=== PATIENT | male | born 1955 | race Caucasian/White ===

== ENCOUNTER 2016-05-05 08:04 | Emergency (ER) | payer OTHER ==
--- NOTE | 2016-05-05 08:39 | EDPHY ---
H & P Stated Complaint: cp Time Seen by Provider: 05/05/16 08:23 HPI/ROS: CHIEF COMPLAINT: Chest pain HISTORY OF PRESENT ILLNESS: Patient is a 60-year-old man who comes to the emergency department complaining of epigastric and left upper quadrant pain. It developed last night after eating [place] food. He was up all night taking Tums and antacids without relief. He has a history of coronary artery disease with 5 stents placed [address] Parry. He also had a negative stress test done 2 months ago prior to surgery. He has a history of spina bifida and self catheterization. He is covered to have bladder and prostate cancer several weeks ago and is status post resection of bladder and prostate 3 weeks ago. He currently has a urostomy bag. Over the last 3 days he has had a slightly elevated temperature temperature of around 99.7degrees. He denies shortness of breath. He does have mild abdominal pain and distension but states that it is gradually improved each day since surgery. He was constipated for some time but is currently having normal bowel movements. REVIEW OF SYSTEMS: Constitutional: denies: chills, fever, recent illness, recent injury EENTM: denies: blurred vision, double vision, nose congestion Respiratory: denies: cough, shortness of breath Cardiac: See HPI Gastrointestinal/Abdominal: See HPI Genitourinary: denies: dysuria, frequency, hematuria, pain Musculoskeletal: denies: joint pain, muscle pain Skin: denies: lesions, rash, jaundice, bruising Neurological: denies: headache, numbness, paresthesia, tingling, dizziness, weakness Hematologic/Lymphatic: denies: blood clots, easy bleeding, easy bruising Immunologic/allergic: denies: HIV/AIDS, transplant EXAM: GENERAL: Well-appearing, well-nourished and in no acute distress. HEAD: Atraumatic, normocephalic. EYES: Pupils equal round and reactive to light, extraocular movements intact, sclera anicteric, conjunctiva are normal. ENT: TMs normal, nares patent, oropharynx clear without exudates. Moist mucous membranes. NECK: Normal range of motion, supple without lymphadenopathy or JVD. LUNGS: Breath sounds clear to auscultation bilaterally and equal. No wheezes rales or rhonchi. HEART: Regular rate and rhythm without murmurs, rubs or gallops. ABDOMEN: Distended, mild diffuse tenderness, wounds clean dry and intact, ostomy clear urine. normoactive bowel sounds. No guarding, no rebound. No masses appreciated. BACK: No CVA tenderness, no spinal tenderness, step-offs or deformities EXTREMITIES: Normal range of motion, no pitting or edema. No clubbing or cyanosis. NEUROLOGICAL: Cranial nerves II through XII grossly intact. Normal speech, normal gait. 5/5 strength, normal movement in all extremities, normal sensation PSYCH: Normal mood, normal affect. SKIN: Warm, dry, normal turgor, no visible rashes or lesions. Source: Patient Exam Limitations: No limitations - Personal History Current Tetanus/Diphtheria Vaccine: Yes - Medical/Surgical History Hx Asthma: No Hx Chronic Respiratory Disease: No Hx Diabetes: No Hx Cardiac Disease: Yes Hx Renal Disease: No Hx Cirrhosis: No Hx Alcoholism: No Hx HIV/AIDS: No Hx Splenectomy or Spleen Trauma: No Other PMH: HTN,sleep apnea, herniated sphincter for the bladder, self caths, enemas for defication, stents x5,urostomy - Family History Significant Family History: Hypertension - Social History Smoking Status: Never smoked Alcohol Use: None Drug Use: None Constitutional: Initial Vital Signs Temperature (C) 36.5 C 05/05/16 08:06 Heart Rate 73 05/05/16 08:06 Respiratory Rate 18 05/05/16 08:06 Blood Pressure 162/77 H 05/05/16 08:06 O2 Sat (%) 97 05/05/16 08:06 O2 Delivery Mode Room Air Allergies/Adverse Reactions: No Known Allergies Allergy (Verified 05/05/16 08:05) Home Medications: Medication Instructions Recorded Aspirin [Aspirin 325 mg (OTC)] 325 mg PO DAILY 01/18/14 Atorvastatin Calcium [Lipitor 80 80 mg PO DAILY 01/18/14 mg] Ezetimibe [Zetia 10 MG (RX)] 10 mg PO DAILY 01/18/14 Hydrochlorothiazide [HCTZ (RX)] 12.5 mg PO Q2D 01/18/14 Lisinopril [Zestril 40 mg (RX)] 40 mg PO DAILY 01/18/14 [place] 3 Fish Oil Softgel 1,000 mg PO DAILY 01/18/14 Pantoprazole Sodium [Protonix 40mg 40 mg PO DAILY 01/18/14 (RX)] oxyCODONE IR [Oxycodone Ir (*)] 5 mg PO Q6 PRN #60 tab 02/02/14 Medical Decision Making - Diagnostics EKG Interpretation: An EKG obtained and was read and documented in trace view. Please see trace view for full reading and report. Sinus bradycardia, similar to previous. Imaging: Results: CT scan of the chest was obtained. The results of the study are positive for left upper lobe/perihilar mass 3 x 3 x 5 cm, no PE or dissection. Fatty liver and gallstones but no source of pain identified. The study was read by Dr. Son. I viewed the images myself on the PACS system. ED Course/Re-evaluation: 11:15 a.m. we discussed the patient's CT results and his lab results. No sign of cardiac injury. The patient states that his symptoms resolved with a large belch at CT scan. He is no longer concern for cardiac issues. He is aware of the mass and his surgeon is currently reviewing films that were done on . We discussed his elevated LFTs when he will also follow up with his surgeon and oncologist about these. They could be due to the recent surgery. He has no right upper quadrant tenderness or pain. Fatty liver seen on CT scan and gallstones without signs of inflammation. I offered admission at this point for further treatment and workup however the patient declines and hands agree to go home and follow up with their oncologist a neurologist. We discussed indications for returning. The patient has stable vital signs currently and is afebrile. His heart rate is slightly bradycardic on arrival but not that unusual for him and has now normalized. Differential Diagnosis: Partial list of the Differential diagnosis considered include but were not limited to; acute coronary disease, GERD, peptic ulcer disease, pneumonia, atelectasis, lung mass and although unlikely based on the history and physical exam, I also considered biliary disease, pancreatitis, liver disease, dissection , PE. I discussed these differential diagnoses and the plan with the patient as well as the usual and expected course. The patient understands that the diagnosis is provisional and that in medicine we are not always correct and that further workup is often warranted. Usual and customary warnings were given. All of the patient's questions were answered. The patient was instructed to return to the emergency department should the symptoms at all worsen or return, otherwise to followup with the physician as we discussed. - Data Points Laboratory Results: Laboratory Results 05/05/16 08:55 05/05/16 08:55 05/05/16 08:55 WBC 10.07 H 10^3/uL (3.80-9.50) RBC 3.73 L 10^6/uL (4.40-6.38) Hgb 9.8 L g/dL (13.7-17.5) Hct 30.0 L % (40.0-51.0) MCV 80.4 L fL (81.5-99.8) MCH 26.3 L pg (27.9-34.1) MCHC 32.7 g/dL (32.4-36.7) RDW 15.7 H % (11.5-15.2) Plt Count 452 H 10^3/uL (150-400) MPV 9.1 fL (8.7-11.7) Neut % (Auto) 83.4 H % (39.3-74.2) Lymph % (Auto) 7.2 L % (15.0-45.0) [place] % (Auto) 7.9 % (4.5-13.0) Eos % (Auto) 0.7 % (0.6-7.6) Baso % (Auto) 0.4 % (0.3-1.7) Nucleat RBC Rel Count 0.0 % (0.0-0.2) Absolute Neuts (auto) 8.39 H 10^3/uL (1.70-6.50) Absolute Lymphs (auto) 0.73 L 10^3/uL (1.00-3.00) Absolute Monos (auto) 0.80 10^3/uL (0.30-0.80) Absolute Eos (auto) 0.07 10^3/uL (0.03-0.40) Absolute Basos (auto) 0.04 10^3/uL (0.02-0.10) Absolute Nucleated RBC 0.00 10^3/uL (0-0.01) Immature Gran % 0.4 % (0.0-1.1) Immature Gran # 0.04 10^3/uL (0.00-0.10) PT 15.0 SEC (12.0-15.0) INR 1.18 H (0.83-1.16) APTT 29.8 SEC (23.0-38.0) Sodium 139 mEq/L (134-144) Potassium 3.6 mEq/L (3.5-5.2) Chloride 103 mEq/L (97-110) Carbon Dioxide 22 mEq/l (22-31) Anion Gap 14 mEq/L (8-16) BUN 10 mg/dL (7-23) Creatinine 0.8 mg/dL (0.7-1.3) Estimated GFR > 60 Glucose 148 H mg/dL (70-100) Calcium 9.2 mg/dL (8.5-10.4) Total Bilirubin 0.6 mg/dL (0.1-1.4) Conjugated Bilirubin 0.3 mg/dL (0.0-0.5) Unconjugated Bilirubin 0.3 mg/dL (0.0-1.1) AST 137 H IU/L (17-59) ALT 199 H IU/L (21-72) Alkaline Phosphatase 154 H IU/L (38-126) Troponin I < 0.012 ng/mL (0-0.034) Total Protein 7.1 g/dL (6.3-8.2) Albumin 3.4 L g/dL (3.5-5.0) Lipase 140.0 IU/L (23-300) Departure - Departure Disposition: Home, Routine, Self-Care Clinical Impression: Chest pain Qualifiers: Chest pain type: other chest pain Qualifier Code: (R07.89) Other chest pain Condition: Fair Instructions: Chest Pain (ED) Referrals: Valorie Lopez MD [Primary Care Provider] - As per Instructions
[2016-05-05] MEDS ORDERED: IOPAMIDOL (ISOVUE 370) 100 ML BTL IV ONE (08:47)
--- NOTE | 2016-05-05 08:51 | CPEKG ---
Heart Rate: 46 RR Interval: 1304 P-R Interval: 156 QRSD Interval: 112 QT Interval: 456 QTC Interval: 399 P [place]: 4 QRS [place]: 40 T Wave [place]: 44 EKG Severity - ABNORMAL ECG - EKG Impression: SINUS BRADYCARDIA EKG Impression: NONSPECIFIC INTRAVENTRICULAR CONDUCTION DELAY EKG Impression: similar to previous Electronically Signed By: Ricky Talbot 05-May-2016 09:37:03
[2016-05-05 09:11] VITALS: TEMP 97.9
[2016-05-05 09:21] LABS: % IMMATURE GRANULYOCYTES 0.4 % (0.0-1.1); ABSOLUTE IMMATURE GRANULOCYTES 0.04 10^3/uL (0.00-0.10); ADD DIFF? NO; ADD MORPH? NO; ADD SCAN? NO; ATYPICAL LYMPHOCYTE FLAG 10 (0-99); FRAGMENT RBC FLAG 20 (0-99); HEMOGLOBIN 9.8 g/dL (13.7-17.5); LEFT SHIFT FLG 0 (0-99); LIPEMIA HEMOLYSIS FLAG 80 (0-99); MEAN CELL HEMOGLOBIN 26.3 pg (27.9-34.1); MEAN CELL HEMOGLOBIN CONCENTR. 32.7 g/dL (32.4-36.7); MEAN CELL VOLUME 80.4 fL (81.5-99.8); MEAN PLATELET VOLUME 9.1 fL (8.7-11.7); PLATELET CLUMPS FLAG 0 (0-99); PLATELET COUNT 452 10^3/uL (150-400); RED BLOOD CELL COUNT 3.73 10^6/uL (4.40-6.38); RED CELL DISTRIBUTION WIDTH 15.7 % (11.5-15.2)
[2016-05-05 09:22] LABS: ALANINE AMINOTRANSFERASE 199 IU/L (21-72); ALBUMIN 3.4 g/dL (3.5-5.0); ALKALINE PHOSPHATASE 154 IU/L (38-126); ANION GAP 14 mEq/L (8-16); ASPARTATE AMINOTRANSFERASE 137 IU/L (17-59); BILIRUBIN,TOTAL 0.6 mg/dL (0.1-1.4); BILIRUBIN-CONJUGATED 0.3 mg/dL (0.0-0.5); BILIRUBIN-UNCONJUGATED 0.3 mg/dL (0.0-1.1); CALCIUM 9.2 mg/dL (8.5-10.4); CARBON DIOXIDE 22 mEq/l (22-31); CHLORIDE 103 mEq/L (97-110); CREATININE 0.8 mg/dL (0.7-1.3); GLOMERULAR FILTRATION RATE > 60; GLUCOSE 148 mg/dL (70-100); POTASSIUM 3.6 mEq/L (3.5-5.2); SODIUM 139 mEq/L (134-144); TOTAL PROTEIN 7.1 g/dL (6.3-8.2)
[2016-05-05 09:26] LABS: APTT 29.8 SEC (23.0-38.0); INR 1.18 (0.83-1.16)
[2016-05-05 09:33] LABS: TROPONIN I < 0.012 ng/mL (0-0.034)
--- NOTE | 2016-05-05 11:01 | CT ---
CT Pulmonary Angiogram History: Shortness of breath, elevated d-dimer. History of prostate and bladder cancer. Comparison: CT chest 10/18/2015. Technique: Axial contrast-enhanced images were obtained through the chest following the uneventful in travenous administration of 95 mL Isovue-370. Creatinine is 0.8. Multiplanar reformations were perfor med through the pulmonary arteries. Dose reduction techniques were utilized. Findings: This is a good quality study with visualization of the vessels to the subsegmental level. T here is no pulmonary embolus. There is a 3.8 x 3.0 x 5.1 cm (series 5 image 86) (transverse by cranio caudal) left perihilar mass in the inferior aspect of the left upper lobe in the region of the major fissure. Relative lucency of lung peripheral to the mass could be related to air trapping. Mild perib ronchial thickening is present. Heart size is normal. Three-vessel coronary artery atherosclerosis is present, most prominent in the LAD and circumflex. The aorta is normal caliber without dissection. N o pathologically enlarged lymph nodes are identified. 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 Diffuse fatty infiltration is present in the liver. Gallstones are present in an otherwise normal gallbladde r. Impression: 1. 5.1 cm left perihilar mass highly suspicious for malignancy. This reportedly has been imaged at an outside facility. If outside images are available, I will be happy to compare them. 2. No visible pulmonary embolus. 3. Coronary artery atherosclerosis. 4. Fatty liver. 5. Cholelithiasis. 6. Additional findings as above. Findings discussed with Ricky Talbot 05/05/2016 at 10:50 a.m.
[2016-05-05 11:43] VITALS: BP 111/76; PULSE 72; RESP 14; O2SAT 96
== END 2016-05-05 11:55 | disposition home or self-care (01) ==
DX: R07.89 Other chest pain (principal); I10 Essential (primary) hypertension; Z95.5 Presence of coronary angioplasty implant and graft; Z79.82 Long term (current) use of aspirin
CPT/HCPCS: Q9967

== ENCOUNTER 2016-05-13 14:41 | Emergency (ER) | payer OTHER ==
[2016-05-13 15:05] VITALS: BP 135/74; PULSE 72; RESP 16; TEMP 98.2; O2SAT 96
--- NOTE | 2016-05-13 15:08 | UCPHY ---
H & P Patient Type: Established Chief Complaint Nursing Narrative: redness and swelling to r ankle x 2 days. no known injury HPI/ROS: HPI CHIEF COMPLAINT: Right foot swelling, redness HISTORY OF PRESENT ILLNESS: This patient very pleasant 60-year-old male, nondiabetic, significant past medical history for recent surgery prostate surgery and bladder removal with urostomy diversion for bladder cancer, also has gout, presents to the urgent care with right lateral foot pain redness and swelling over the 3rd 4th and 5th metatarsal. Denies trauma. Denies fever. Denies to redness streaking up his leg. States he has been taking his gout medicine it has slightly improved in the last 2-3 days. However given the redness and warmth he decided to come to the urgent care to be evaluated. He denies chest pain, shortness of breath, nausea, vomiting, fever or exquisite pain. He is able to ambulate denies significant trauma to his foot. He is requesting an x-ray of his foot. Past Medical History: Gout, recent diagnosis of bladder cancer prostate cancer coronary artery disease with stents Past Surgical History: Stents in his heart, recent bladder surgery urostomy diversion Social History: Denies daily use of drugs alcohol tobacco products Family History: noncontributory ROS REVIEW OF SYSTEMS: A comprehensive 10 point review of systems is otherwise negative aside from elements mentioned in the history of present illness. Exam Constitutional triage nursing summary reviewed, vital signs reviewed, awake/ alert. Eyes normal conjunctivae and sclera, EOMI, PERRLA. HENT normal inspection, atraumatic, moist mucus membranes, no epistaxis, neck supple/ no meningismus, no raccoon eyes. Respiratory clear to auscultation bilaterally, normal breath sounds, no respiratory distress, no wheezing. Cardiovascular rate normal, regular rhythm, no murmur, no edema, distal pulses normal. Gastrointestinal soft, non-tender, no rebound, no guarding, normal bowel sounds, no distension, no pulsatile mass. Genitourinary no CVA tenderness. Musculoskeletal right foot: Tender palpation of the 3rd 4th and 5th metatarsal , he has good neurovascular function good pulse, specifically good DP pulse, warm extremity, there is minimal redness to the right lateral foot it has been outlined, does not streak up his calf or his anterior tibia, there is no crepitus, there is some mild edema, no midline vertebral tenderness, full range of motion, no calf swelling, no tenderness of extremities, no meningismus, good pulses, neurovascularly intact. Skin pink, warm, & dry, no rash, skin atraumatic. Neurologic awake, alert and oriented x 3, AAOx3, moves all 4 extremities equally, motor intact, sensory intact, CN II-XII intact, normal cerebellar, normal vision, normal speech. Psychiatric normal mood/affect. Heme/Lymph/Immune no lymphadenopathy. Differential Diagnosis: Includes but is not limited to in a particular order, cellulitis, doubt underlying foot fracture, gout Medical Decision Making: This patient had an x-ray at his request of the right foot to rule out fracture however this is unlikely given no history of trauma, he has redness and some mild swelling he is neurovascularly intact most likely this is a cellulitis. Does tell me it is improved with gout medicine I encouraged him to continue his gout medicine I will add Keflex and Bactrim to his regimen. He has been outlined he understands watch closely for further worsening symptoms including worsening redness, swelling, pain, fever. He understands he sees is to return to the urgent care/emergency room. ED x-ray right foot: negative for acute fracture. Image interpreted myself. Source: Patient - Medical/Surgical History Hx Asthma: No Hx Chronic Respiratory Disease: No Hx Diabetes: No Hx Cardiac Disease: Yes Hx Renal Disease: No Hx Cirrhosis: No Hx Alcoholism: No Hx HIV/AIDS: No Hx Splenectomy or Spleen Trauma: No Other PMH: 5 cardiac stents, htn, spina bifada, urostomy - Family History Significant Family History: No pertinent family hx - Social History Smoking Status: Never smoked Constitutional: Initial Vital Signs Temperature (C) 36.8 C 05/13/16 15:02 Heart Rate 72 05/13/16 15:02 Respiratory Rate 16 05/13/16 15:02 Blood Pressure 135/74 H 05/13/16 15:02 O2 Sat (%) 96 05/13/16 15:02 O2 Delivery Mode Room Air Allergies/Adverse Reactions: No Known Allergies Allergy (Verified 05/05/16 08:05) Home Medications: Medication Instructions Recorded Aspirin [Aspirin 325 mg (OTC)] 325 mg PO DAILY 01/18/14 Atorvastatin Calcium [Lipitor 80 80 mg PO DAILY 01/18/14 mg] Ezetimibe [Zetia 10 MG (RX)] 10 mg PO DAILY 01/18/14 Hydrochlorothiazide [HCTZ (RX)] 12.5 mg PO Q2D 01/18/14 Lisinopril [Zestril 40 mg (RX)] 40 mg PO DAILY 01/18/14 [place] 3 Fish Oil Softgel 1,000 mg PO DAILY 01/18/14 Pantoprazole Sodium [Protonix 40mg 40 mg PO DAILY 01/18/14 (RX)] Cephalexin [Keflex] 500 mg PO Q6H #28 cap 05/13/16 Sulfamethox/Tmp 800/160 mg 1 tab PO BID@1000,2200 #14 tab 05/13/16 [Bactrim Ds] Departure - Departure Disposition: Home, Routine, Self-Care Clinical Impression: Cellulitis of right foot Condition: Good Instructions: Cellulitis (ED) Additional Instructions: 1. Please keep her foot elevated, use ice for pain control. 2. Please keep her foot elevated. 3.Take antibiotics as prescribed. 4.Continue your gout medication 5. Return to the urgent care or emergency room if develops any worsening swelling, redness, fever, worsening signs of infection. Referrals: Valorie Lopez MD [Primary Care Provider] - As per Instructions Prescriptions: Cephalexin [Keflex] 500 mg PO Q6H #28 cap Sulfamethox/Tmp 800/160 mg [Bactrim Ds] 1 tab PO BID@1000,2200 #14 tab - PQRS PQRS Measurement: n/a
== END 2016-05-13 16:16 | disposition home or self-care (01) ==
LOC: CED 14:41
DX: M79.671 Pain in right foot (principal); M79.89 Other specified soft tissue disorders
CPT/HCPCS: 73630-PO; 99214-PO; G0463-PO